=== PATIENT | male | born 1970 | race Caucasian/White ===

== ENCOUNTER 2020-12-12 11:48 | Emergency (ER) | payer OTHER ==
[2020-12-12] MEDS ORDERED: ACETAMINOPHEN 325 MG TABLET (FP) PO ONE (11:50)
[2020-12-12 12:13] VITALS: BP 148/99; PULSE 92; TEMP 99.2; BMI 27.4
== END 2020-12-12 13:02 | disposition home or self-care (01) ==
LOC: FER 11:48
DX: M54.2 Cervicalgia (principal)
CPT/HCPCS: 99283-25